=== PATIENT | male | born 1990 | race Caucasian/White ===

== ENCOUNTER 2020-04-08 19:36 | Emergency (ER) | payer BC ==
[2020-04-08] MEDS ORDERED: Proparacaine 0.5% Ophth Soln 15 ML Bottle EYERT PRN (19:48)
[2020-04-08] MEDS ORDERED: Fluorescein 1 MG Ophth Strip EYERT ONE (19:48)
[2020-04-08] MEDS ORDERED: Polymyxin B/Trimethoprim 10 ML Bottle EYERT ONE (20:00)
--- NOTE | 2020-04-08 20:08 | EDM.PDOC ---
ED HPI GENERAL MEDICAL PROBLEM - General Chief Complaint: Eye Problems Stated Complaint: EYE COMPLAINT Time Seen by Provider: 04/08/20 19:50 Source of Information: Reports: Patient History Limitations: Reports: No Limitations - History of Present Illness INITIAL COMMENTS - FREE TEXT/NARRATIVE: Patient comes into the emergency department with concerns of a right eye irritation. Patient states that he woke up this morning felt like there was a fragment in his right eye. He states that it has become increasingly irritating throughout the day. He states that he has been under the influence of alcohol has had approximately 8 drinks today. He states that his vision is often cloudy for he had an injury accident revolving that right eye approximately 10 years ago. He states that he does not feel that the visual field is any different today but it is more irritating and is more light sensitive. He also states that the irritation is a scratchy sensation in the eye. He has noticed that the irritation is less if the eyes closed versus when it is open. He also denies any floaters, ocular pressure, or headache. Onset: Sudden Quality: Reports: Ache Severity: Mild Improves with: Reports: None Worsens with: Reports: None Associated Symptoms: Reports: No Other Symptoms - Related Data Allergies Allergy/AdvReac Type Severity Reaction Status Date / Time No Known Allergies Allergy Verified 04/08/20 19:59 Home Meds: Home Meds . [No Known Home Meds] 04/08/20 [History] ED ROS GENERAL - Review of Systems Review Of Systems: Comprehensive ROS is negative, except as noted in HPI. Constitutional: Reports: No Symptoms Respiratory: Reports: No Symptoms Cardiovascular: Reports: No Symptoms Endocrine: Reports: No Symptoms GI/Abdominal: Reports: No Symptoms Musculoskeletal: Reports: No Symptoms Skin: Reports: No Symptoms Neurological: Reports: No Symptoms Psychiatric: Reports: No Symptoms Hematologic/Lymphatic: Reports: No Symptoms Immunologic: Reports: No Symptoms ED EXAM GENERAL W FULL EYE - Physical Exam Exam: See Below Exam Limited By: No Limitations General Appearance: Alert, WD/WN, No Apparent Distress Eye Exam: Bilateral Eye: EOMI Visual Acuity (R) 20/: 100 Visual Acuity (L) 20/: 20 With Correction: No Eyelids: Right: Edema, Erythema, Left: Normal Appearance Conjunctiva & Sclera: Right: Discharge, Left: Normal Appearance Cornea Exam: Right: Corneal Abrasion (dark thin fragment or dark appearance deep in the cornea ), Left: Normal Appearance Extraocular Movements: Bilateral: Intact Pupils: Normal Accommodation Pupillary Size: Right: 3 mm (eye does not change due to old injury ), Left: 2 mm Pupillary Reaction: Right: Absent, Left: Brisk Anterior Chamber: Bilateral: Normal Appearance Posterior Chamber: Bilateral: Normal Funduscopic Nose: Normal Inspection, Normal Mucosa Throat/Mouth: Normal Inspection, Normal Lips, Normal Voice, No Airway Compromise Head: Atraumatic, Normocephalic Neck: Normal Inspection, Supple, Non-Tender, Full Range of Motion Respiratory/Chest: No Respiratory Distress, No Accessory Muscle Use, Chest Non- Tender Cardiovascular: Normal Peripheral Pulses, No Edema, No Murmur GI/Abdominal: Normal Bowel Sounds, Soft, Non-Tender Back Exam: Normal Inspection, Full Range of Motion Extremities: Normal Inspection, Normal Range of Motion, Normal Capillary Refill Neurological: Alert, Oriented Psychiatric: Normal Affect, Normal Mood Skin Exam: Warm, Dry, Intact, Normal Color Course - Orders/Labs/Meds Orders: Active Orders 24 hr Category Date Time Status Proparacaine [Proparacaine 0.5% Ophth Soln] Med 04/08/20 19:48 Active 1 ml EYERT ASDIRECTED PRN Medication Orders Proparacaine HCl (Proparacaine 0.5% Ophth Soln) 1 ml EYERT ASDIRECTED PRN PRN Reason: Other Meds: Medications Generic Name Dose Route Start Last Admin Trade Name Freq PRN Reason Stop Dose Admin Proparacaine HCl 1 ml 04/08/20 19:48 Proparacaine 0.5% Ophth Soln EYERT ASDIRECTED PRN Other Discontinued Medications Generic Name Dose Route Start Last Admin Trade Name Freq PRN Reason Stop Dose Admin Fluorescein Sodium 1 mg 04/08/20 19:48 Ful-Evelyn EYERT 04/08/20 19:49 ONETIME ONE Polymyxin/Trimethoprim Sulfate 2 ml 04/08/20 20:00 Polytrim Ophth Soln EYERT 04/08/20 20:01 ONETIME ONE Departure - Departure Time of Disposition: 20:20 Disposition: Home, Self-Care 01 Condition: Good Clinical Impression: Corneal abrasion Qualifiers: Encounter type: initial encounter Laterality: right Qualified Code(s): S05.01XA - Injury of conjunctiva and corneal abrasion without foreign body, right eye, initial encounter - Discharge Information *PRESCRIPTION DRUG MONITORING PROGRAM REVIEWED*: Not Applicable *COPY OF PRESCRIPTION DRUG MONITORING REPORT IN PATIENT TICO: Not Applicable Instructions: Polymyxin B; Trimethoprim eye drops, solution, Corneal Abrasion Referrals: PCP,None [Primary Care Provider] - Forms: ED Department Discharge Additional Instructions: 1. take eye drops to eye 2 drops 4 times a day for 5 days 2. rest 3. increase your water intake 4. Continue all at home medications 5. Activity and diet as tolerated 6. Can take over the counter Tylenol or ibuprofen for any pain or discomfort 7. Follow up with PCP or eye doctor if symptoms continue, return, or progress 8. Call with any questions or concerns - My Orders Last 24 Hours: My Active Orders 04/08/20 19:48 Proparacaine [Proparacaine 0.5% Ophth Soln] 1 ml EYERT ASDIRECTED PRN - Assessment/Plan Last 24 Hours: My Active Orders 04/08/20 19:48 Proparacaine [Proparacaine 0.5% Ophth Soln] 1 ml EYERT ASDIRECTED PRN Assessment:: 1. corneal abrasion Plan: 1. Proparacaine drop to the eye for pain 2. Fluorecin strip with saline to the eye for examination 3. Florescent lamp examination 4. polytrim given in the ER. 5. Patient and nursing staff was updated regarding the plan of care 6. Education provided the patient regarding activity, diet, rest, [id number] medication modalities, and follow-up care was provided 7. Patient and family are agreeable to the above plan of care 8. All questions and concerns were addressed with the patient and family prior to discharge 9. Patient is advised to call or return if symptoms progress. Foreign body could not be ruled out but was not obvious- dark small fragmented line deep in the corneal area. Did discuss if getting worse would need to be evaluated by Substance Abuse Services Director
== END 2020-04-08 20:26 | disposition home or self-care (01) ==
LOC: SUPCPDRO 19:36 → VM.ED 19:36
DX: S05.01XA Injury of conjunctiva and corneal abrasion without foreign body, right eye, initial encounter (principal); X58.XXXA Exposure to other specified factors, initial encounter
CPT/HCPCS: 99283; A9270-GY